=== PATIENT | female | born 1990 | race Caucasian/White ===

== ENCOUNTER 2021-08-04 09:46 | Outpatient (CLI) | payer OTHER, SELFPAY ==
[2021-08-04 19:22] LABS: Basophils Absolute Auto 0.1 K/mm3 (0.0-0.1); Basophils Percent Auto 0.8 % (0.2-1.2); Eosinophils Absolute Auto 0.2 K/mm3 (0-0.3); Eosinophils Percent Auto 2.4 % (0-4.4); Hematocrit 43.1 % (37.0-47.0); Hemoglobin 14.1 g/dL (12.0-15.0); Immature Granulocyte Absolute 0.02 K/mm3 (0.00-0.031); Immature Granulocyte Percent A 0.3 % (0-0.5); Lymphocytes Absolute Auto 2.21 K/mm3 (0.9-3.2); Lymphocytes Percent Auto 35.4 % (18.3-44.2); Mean Corpuscular HGB Conc 32.7 g/dl (32-36); Mean Corpuscular Hemoglobin 29.7 pg (26-34); Mean Corpuscular Volume 90.9 fl (80-100); Mean Platelet Volume 11.2 fl (7.4-10.4); Monocytes Absolute Auto 0.5 K/mm3 (0.1-0.6); Monocytes Percent Auto 7.9 % (2.6-8.5); Neutrophils Absolute Auto 3.3 K/mm3 (1.3-6.7); Neutrophils Percent Auto 53.2 % (45.5-73.1); Platelet Count Result 291 k/mm3 (150-375); Red Blood Count 4.74 M/mm3 (4.2-5.4); Red Cell Distribution Width 12.8 % (11.5-14.5); White Blood Count 6.2 K/mm3 (4.5-10.0)
[2021-08-04 19:30] LABS: Alanine Aminotransferase 48 U/L (4-35); Albumin Level 4.5 g/dL (3.5-5.1); Alkaline Phosphatase 65 U/L (38-126); Anion Gap 14 mmol/L (8-16); Aspartate Amino Transferase 31 U/L (14-36); Bilirubin,Total 0.4 mg/dL (0.2-1.3); Blood Urea Nitrogen 14 mg/dL (7-17); Calcium 10.1 mg/dL (8.4-10.2); Carbon Dioxide 21 mmol/L (22-30); Chloride 103 mmol/L (98-107); Cholesterol 194 mg/dL (0-200); Estimated Glomerular Filt Rate > 60; Glucose 125 mg/dL (65-110); HDL Direct 74 mg/dL; Potassium 4.2 mmol/L (3.4-5.0); Sodium 138 mmol/L (137-145); Triglycerides 114 mg/dL (<150)
[2021-08-04 19:35] LABS: Hemoglobin A1C 5.8 % (<5.7)
[2021-08-04 19:41] LABS: LDL Cholesterol Direct 100 mg/dL
[2021-08-04 19:47] LABS: Free T4 Free Thyroxine 0.75 ng/mL (0.78-2.19); Vitamin D 25 Hydroxy 22.8 ng/mL
[2021-08-04 21:01] LABS: Total Triiodothyronine (T3) 1.39 NG/ML (0.97-1.69)
[2021-08-08 07:50] LABS: Triiodothyronine T3 Free 3.1 pg/mL (2.3-4.2)
== END 2021-08-04 09:47 | disposition home or self-care (01) ==
PROVIDERS: PCP Family Medicine; Visit Provider Family Medicine
DX: Z00.00 Encounter for general adult medical examination without abnormal findings (principal); E11.9 Type 2 diabetes mellitus without complications; E07.9 Disorder of thyroid, unspecified; R79.89 Other specified abnormal findings of blood chemistry
CPT/HCPCS: 36415; 80053; 80061; 82306; 83036; 84439; 84480; 84481; 85025

== ENCOUNTER 2022-02-08 08:26 | Outpatient (CLI) | payer OTHER, SELFPAY ==
[2022-02-08 20:09] LABS: Free T4 Free Thyroxine 0.95 ng/mL (0.78-2.19)
[2022-02-08 21:29] LABS: Alanine Aminotransferase 52 U/L (6-35); Albumin Level 4.8 g/dL (3.5-5.1); Alkaline Phosphatase 68 U/L (38-126); Aspartate Amino Transferase 49 U/L (14-36); Bilirubin,Total 0.5 mg/dL (0.2-1.3)
[2022-02-08 22:00] LABS: Hemoglobin A1C 6.8 % (<5.7)
[2022-02-11 02:39] LABS: Thyroid Peroxidase Antibodies 10 IU/mL (<9)
== END 2022-02-08 08:27 | disposition home or self-care (01) ==
LOC: ANHBWCLAB 08:27
PROVIDERS: PCP Family Medicine; Visit Provider Family Medicine
DX: R74.8 Abnormal levels of other serum enzymes (principal); R73.03 Prediabetes; E07.9 Disorder of thyroid, unspecified
CPT/HCPCS: 36415; 80076; 83036; 84439; 84443; 86376

== ENCOUNTER 2022-02-21 13:21 | Outpatient (CLI) | payer OTHER, SELFPAY ==
[2022-02-21 20:01] LABS: Hepatitis B Surface Antigen Negative (Negative)
[2022-02-21 20:07] LABS: HAV RESULT Negative (Negative); Hepatitis B Core IgM Result Negative (Negative)
[2022-02-21 20:18] LABS: Hepatitis C Virus Antibody Negative (Negative)
[2022-02-21 20:51] LABS: Hemoglobin A1C 6.6 % (<5.7)
[2022-02-27 22:39] LABS: ALT 60 U/L (6-29); Alpha-2-Macroglobulin 127 mg/dL (106-279); Apolipoprotein A1 158 mg/dL (101-198); Fibrosis Score 0.05; Fibrosis Stage F0; GGT 39 U/L (3-50); Haptoglobin 103 mg/dL (43-212); Necroinflammat Act Grade A0-A1; Total Bilirubin 0.4 mg/dL (0.2-1.2)
== END 2022-02-21 13:22 | disposition home or self-care (01) ==
LOC: ANHBWCLAB 13:22
PROVIDERS: PCP Family Medicine; Visit Provider Family Medicine
DX: R73.09 Other abnormal glucose (principal); R74.01 Elevation of levels of liver transaminase levels
CPT/HCPCS: 36415; 80074; 81596; 83036

== ENCOUNTER 2022-07-04 10:45 | Outpatient (CLI) | payer OTHER, SELFPAY | END 2022-07-04 10:46 | disposition home or self-care (01) | LOC: ANHBWCLAB 10:45 | PROVIDERS: PCP Family Medicine; Visit Provider Family Medicine | DX: E07.9 Disorder of thyroid, unspecified (principal); E11.9 Type 2 diabetes mellitus without complications | CPT/HCPCS: 36415; 84443 ==

== ENCOUNTER 2022-08-15 11:02 | Outpatient (CLI) | payer OTHER, SELFPAY ==
[2022-08-15 20:56] LABS: Hemoglobin A1C 5.6 % (<5.7)
== END 2022-08-15 11:03 | disposition home or self-care (01) ==
LOC: ANHBWCLAB 11:03
PROVIDERS: PCP Family Medicine; Visit Provider Family Medicine
DX: E11.9 Type 2 diabetes mellitus without complications (principal)
CPT/HCPCS: 36415; 83036

== ENCOUNTER 2023-09-09 16:03 | Outpatient (CLI) | payer OTHER, SELFPAY ==
[2023-09-09 19:01] LABS: Hematocrit 40.9 % (37.0-47.0); Hemoglobin 13.1 g/dL (12.0-15.0); Mean Corpuscular Hemoglobin 28.8 pg (26-34); Mean Corpuscular Volume 89.9 fl (80-100); Mean Platelet Volume 10.8 fl (7.4-10.4); Platelet Count Result 333 k/mm3 (150-375); Red Blood Count 4.55 M/mm3 (4.2-5.4); Red Cell Distribution Width 13.5 % (11.5-14.5); White Blood Count 7.6 K/mm3 (4.5-10.0)
[2023-09-09 20:11] LABS: Alanine Aminotransferase 41 U/L (6-35); Albumin Level 4.7 g/dL (3.5-5.1); Alkaline Phosphatase 67 U/L (38-126); Anion Gap 9 mmol/L (8-16); Aspartate Amino Transferase 35 U/L (14-36); Bilirubin,Total 0.3 mg/dL (0.2-1.3); Blood Urea Nitrogen 21 mg/dL (7-17); Calcium 10.7 mg/dL (8.4-10.2); Carbon Dioxide 25 mmol/L (22-30); Chloride 105 mmol/L (98-107); Cholesterol 202 mg/dL (0-200); Estimated Glomerular Filt Rate > 60; Glucose 93 mg/dL (65-110); HDL Direct 74 mg/dL; Potassium 3.9 mmol/L (3.4-5.0); Sodium 139 mmol/L (137-145); Triglycerides 108 mg/dL (<150)
[2023-09-09 20:17] LABS: Creatinine Urine 34.3 mg/dL
[2023-09-09 20:22] LABS: LDL Cholesterol Direct 92 mg/dL
[2023-09-09 20:34] LABS: MALB Creatinine Ratio < 17.5 mg/g (0-30); Microalbumin Urine Random < 6.0 mg/L (0-16.7)
[2023-09-09 20:49] LABS: Hemoglobin A1C 5.8 % (<5.7)
== END 2023-09-09 16:04 | disposition home or self-care (01) ==
PROVIDERS: PCP Family Medicine; Visit Provider Family Medicine
DX: E11.9 Type 2 diabetes mellitus without complications (principal); R74.8 Abnormal levels of other serum enzymes; E07.9 Disorder of thyroid, unspecified; Z86.69 Personal history of other diseases of the nervous system and sense organs; F41.8 Other specified anxiety disorders
CPT/HCPCS: 36415; 80053; 80061; 82043; 83036; 85027

== ENCOUNTER 2023-10-09 14:51 | Outpatient (CLI) | payer OTHER, SELFPAY ==
[2023-10-09 20:10] LABS: Free T4 Free Thyroxine 0.77 ng/mL (0.78-2.19)
[2023-10-13 14:36] LABS: Triiodothyronine T3 Free 2.7 pg/mL (2.3-4.2)
== END 2023-10-09 14:52 | disposition home or self-care (01) ==
LOC: ANHBWCLAB 14:52
PROVIDERS: PCP Family Medicine; Visit Provider Family Medicine
DX: E07.9 Disorder of thyroid, unspecified (principal)
CPT/HCPCS: 36415; 84439; 84443; 84481

== ENCOUNTER 2023-10-16 15:05 | Outpatient (CLI) | payer OTHER, SELFPAY ==
[2023-10-19 20:31] LABS: Ionized Calcium 5.3 mg/dL (4.7-5.5)
== END 2023-10-16 15:06 | disposition home or self-care (01) ==
PROVIDERS: PCP Family Medicine; Visit Provider Family Medicine
DX: E83.52 Hypercalcemia (principal)
CPT/HCPCS: 36415; 82330

== ENCOUNTER 2023-10-19 08:29 | Outpatient (CLI) | payer OTHER, SELFPAY ==
--- NOTE | ~2023-10-19 | US_ITS ---
US abdomen limited DATE: 10/19/2023 08:54 INDICATION: Elevated liver function tests TECHNIQUE: Real-time imaging of liver, pancreas, gallbladder COMPARISON: None FINDINGS: There is hepatic steatosis. No hepatic or pancreatic space-occupying mass lesion. Normal he patopedal portal venous flow direction. No gallstones or gallbladder wall thickening. Negative sonographic Durán's sign. The common bile duct measures 4.4 mm, normal. IMPRESSION: Hepatic steatosis Reviewed, dictated and finalized at [facility]. Reviewed, dictated and finalized at [facility]. IMPRESSION: Hepatic steatosis
== END 2023-10-19 08:30 ==
LOC: MICIMG 08:31
PROVIDERS: PCP Family Medicine; Visit Provider Family Medicine
DX: R74.8 Abnormal levels of other serum enzymes (principal); K76.0 Fatty (change of) liver, not elsewhere classified
CPT/HCPCS: 76705

== ENCOUNTER 2024-05-03 19:51 | Emergency (ER) | payer OTHER, SELFPAY ==
[2024-05-03 19:57] VITALS: BP 147/90; PULSE 128; RESP 20; TEMP 36.8; O2SAT 97
--- NOTE | 2024-05-03 21:52 | ED.GENADULT ---
HPI - General Adult General Chief complaint: Headache Stated complaint: headache Time Seen by Provider: 05/03/24 21:47 History of Present Illness HPI narrative: Patient is a 33-year-old female who presents to the emergency department this evening complaining of migraine headache for the past week. Patient states that she does have a history of migraine headaches and does take migraine medications at home but has not had any relief with her oral medications at home. Patient rates this a 7/10 on the pain scale and admits that it feels very similar to her recurrent migraine headaches and denies any worse headache of her life sensation or any unusual characteristics. Patient denies any fevers or chills at home, any nausea vomiting or abdominal pain. Denies any vision changes, focal weakness, numbness and tingling, or any dizziness. No additional symptoms or concerns at this time. Related Data Allergies Allergy/AdvReac Type Severity Reaction Status Date / Time latex Allergy Unknown Verified 05/03/24 20:01 Review of Systems Review of Systems: All systems are reviewed and are negative unless stated otherwise in the HPI. [facility] Past Medical History Medical History Chronic headache Depression with anxiety Elevated liver enzymes Female fertility problem History of migraine with aura Low vitamin D level Thyroid disorder Type 2 diabetes mellitus Wart Surgical History Surgical History S/P excision of lipoma (~2014) on back Family History Family History Mother Depression Migraine Thyroid disorder Grandparent Diabetes mellitus Alcohol abuse Grandparent Heart disease Diabetes mellitus Alcohol abuse Cancer Father Diabetes mellitus Alcohol abuse Sibling Depression Anxiety Social History Social History Social History: 2 cups of coffee Smoking status: Never smoker Alcohol intake: current Drinks per week: 3 Alcohol use details: Beer Substance use: never Living arrangements: with family Gender identity (if verbalized by the patient): Female Exam Narrative: General: Alert, awake, afebrile, in no acute distress. HEENT: PERRL, no rhinorrhea, no post nasal drip, oropharynx clear, photophobia. Cardiovascular: Regular rate and rhythm, no murmurs, rubs or gallops, no peripheral edema. Respiratory: Clear to auscultation bilaterally, no tachypnea, no wheezing, no rhonchi, no rubs, no respiratory distress. Abdomen: Soft, nontender, nondistended, no rebound, no guarding, no peritoneal signs. Musculoskeletal: No joint swelling or deformity, normal muscle tone. Skin: No rashes or petechia, no signs of infection. Neurological: Alert and oriented to person, place, and time. Follows all commands. No focal deficits, speech is clear and fluent. Course Vital Signs Vital signs: Vital Signs Temperature 98.2 F 05/03/24 19:57 Pulse Rate 128 H 05/03/24 19:57 Respiratory Rate 20 05/03/24 19:57 Blood Pressure 147/90 H 05/03/24 19:57 Pulse Oximetry 97 05/03/24 19:57 Oxygen Delivery Room Air 05/03/24 19:57 Temperature 98.2 F 05/03/24 19:57 Pulse Rate 128 H 05/03/24 19:57 Respiratory Rate 20 05/03/24 19:57 Blood Pressure 147/90 H 05/03/24 19:57 Pulse Oximetry 97 05/03/24 19:57 Oxygen Delivery Room Air 05/03/24 19:57 Medical Decision Making MDM Narrative Medical decision making narrative: The patient was evaluated by myself in the emergency department. History is obtained from patient who is an independent historian and physical exam was performed. External medical records were reviewed at this time. Patient was administered 1 L IV fluid bolus with normal saline, 15 mg of IV Toradol, 25 mg of IV Benadryl and 10 mg IV Reglan for migraine
[2024-05-03] MEDS: METOCLOPRAMIDE HCL INJ 10 MG/2 ML VIAL IV PUSH (22:07)
[2024-05-03] MEDS: diphenhydrAMINE HCl INJ 50 MG/ML VIAL 25 MG IV PUSH (22:07)
[2024-05-03] MEDS: SODIUM CHLORIDE 0.9% IV 1,000 ML 999 ML IV CONT (22:07)
[2024-05-03] MEDS: KETOROLAC 15 MG/ML VIAL (*BKC) IV PUSH (22:07)
[2024-05-03 23:47] VITALS: BP 138/76; PULSE 99; RESP 15; O2SAT 100
== END 2024-05-03 23:47 | disposition home or self-care (01) ==
PROVIDERS: Emergency Provider Emergency Medicine; PCP Family Medicine
DX: G43.909 Migraine, unspecified, not intractable, without status migrainosus (principal); E11.9 Type 2 diabetes mellitus without complications; E07.9 Disorder of thyroid, unspecified; Z79.899 Other long term (current) drug therapy; Z79.84 Long term (current) use of oral hypoglycemic drugs
CPT/HCPCS: 96361; 96374; 96375; 99284; J1200; J1885; J2765; J7030

== ENCOUNTER 2024-07-27 15:43 | Outpatient (CLI) | payer OTHER, SELFPAY ==
--- NOTE | ~2024-07-27 | MR_ITS ---
EXAMINATION: MR brain/brain stem wo con DATE: 07/27/2024 16:17 INDICATION: Headache. TECHNIQUE: Magnetic resonance imaging (MRI) of the brain and brainstem was performed without intraven ous contrast. COMPARISON: None. FINDINGS: There is no intracranial hemorrhage, acute infarction, or abnormal intracranial mass lesion . The ventricles are normal in size. There is mucosal thickening in the paranasal sinuses. The orbits are normal. The mastoid air cells are normal. IMPRESSION: 1. Normal brain. Reviewed, dictated and finalized at [facility]. SEARCH EVALUATOR IMPRESSION: 1. Normal brain.
== END 2024-07-27 15:44 | disposition home or self-care (01) ==
LOC: GOSHIMG 15:44
PROVIDERS: PCP Family Medicine; Visit Provider Family Medicine
DX: R51.9 Headache, unspecified (principal)
CPT/HCPCS: 70551